=== PATIENT | male | born 1985 | race Two or more races ===

== ENCOUNTER 2019-08-01 12:59 | Inpatient (IN) | payer SELFPAY ==
--- NOTE | 2019-08-01 13:08 | ED ---
Psychiatric Complaint - HPI Summary HPI Summary: This pt is a 34 y/o male presenting to [facility] via EMS from [facility] c/o depression. Pt denies any diagnosis of depression and is not on any medications. Pt reports he does not feel well and states feeing depressed. He admits to SI thoughts and wanting to hurt himself. He denies definite SI plan. Pt admits to alcohol, tobacco, and marijuana use. He denies any PMHx. NKDA. Pt lives in [place]. - History Of Current Complaint Hx Obtained From: Patient Onset/Duration: Lasting Days, Still Present Timing: Days Severity Currently: Moderate Character: Depressed Aggravating Factor(s): Nothing Alleviating Factor(s): Nothing Has Suicidal: Reports: Thoughts. Denies: With A Plan Has Homicidal: Denies: Thoughts, With A Plan - Allergies/Home Medications Allergies/Adverse Reactions: Allergies Allergy/AdvReac Type Severity Reaction Status Date / Time No Known Allergies Allergy Verified 08/01/19 13:06 Home Medications: Home Medications NK [No Home Medications Reported] 08/01/19 [History Confirmed 08/01/19] PMH/Surg Hx/FS Hx/Imm Hx Endocrine/Hematology History: Denies: Hx Diabetes Cardiovascular History: Denies: Hx Hypertension - Surgical History Surgical History: None - Family History Known Family History: Negative: Cardiac Disease, Hypertension, Diabetes - Social History Alcohol Use: Occasionally Substance Use Type: Reports: Marijuana Smoking Status (MU): Current Some Day Smoker Review of Systems Negative: Fever, Chills Respiratory: Negative Gastrointestinal: Negative Genitourinary: Negative Psychological: Other - POSITIVE: SI Positive: Depressed All Other Systems Reviewed And Are Negative: Yes Physical Exam - Summary Physical Exam Summary: VITAL SIGNS: Reviewed. GENERAL: Patient is a well-developed and nourished male. Alcohol in patient's breath. HEAD AND FACE: No signs of trauma. No ecchymosis, hematomas or skull depressions. No sinus tenderness. EYES: PERRLA, EOMI x 2, No injected conjunctiva, no nystagmus. EARS: Hearing grossly intact. Ear canals and tympanic membranes are within normal limits. MOUTH: Oropharynx within normal limits. NECK: Supple, trachea is midline, no adenopathy, no JVD, no carotid bruit, no c- spine tenderness, neck with full ROM. CHEST: Symmetric, no tenderness at palpation LUNGS: Clear to auscultation bilaterally. No wheezing or crackles. CVS: Regular rate and rhythm, S1 and S2 present, no murmurs or gallops appreciated. ABDOMEN: Soft, non-tender. No signs of distention. No rebound no guarding, and no masses palpated. Bowel sounds are normal. EXTREMITIES: FROM in all major joints, no edema, no cyanosis or clubbing. NEURO: Alert and oriented x 3. No acute neurological deficits. Speech is normal and follows commands. SKIN: Dry and warm PSYCH: Patient is crying at bedside. Patient with positive SI thoughts. Triage Information Reviewed: Yes Vital Signs Reviewed: Yes Procedures - Sedation Patient Received Moderate/Deep Sedation with Procedure: No Diagnostics - Laboratory Result Diagrams: 08/01/19 13:21 08/01/19 13:21 Lab Statement: Any lab studies that have been ordered have been reviewed, and results considered in the medical decision making process. Course/Dx - Course Assessment/Plan: Test results without any significant abnormalities. Pt is alert and oriented x3. Pt is medically cleared. He had a mental health evaluation and his case was reviewed by Dr. Rose, psychiatrist. Pt will be admitted on a voluntary status by Dr. Rose with dx depressive episode. - Differential Dx/Clinical Impression Provider Diagnosis: Depressive episode Discharge ED - Sign-Out/Discharge Documenting (check all that apply): Patient Departure - Admit to [facility] - Discharge Plan Condition: Stable Disposition: PSYCHIATRIC FACILITY-[facility] - Billing Disposition and Condition Condition: STABLE Disposition: Psychiatric Facility [facility] - Attestation Statements Document Initiated by Daniellee: Yes Documenting Scribe: Angelita Gutierrez Provider For Whom Kay is Documenting (Include Credential): Manuel Gamboa MD Scribe Attestation: Angelita Silva scribed for Manuel Gamboa MD on 08/02/19 at 0826. Scribe Documentation Reviewed: Yes Provider Attestation: The documentation as recorded by the Angelita burton accurately reflects the service I personally performed and the decisions made by me, Manuel Gamboa MD Status of Scribe Document: Viewed
[2019-08-01 13:32] LABS: ABS Basophils 0.1 10^3/ul (0-0.2); ABS Eosinophils 0.1 10^3/ul (0-0.6); ABS Lymphocytes 1.9 10^3/ul (1.0-4.8); ABS Monocytes 0.7 10^3/ul (0-0.8); ABS Neutrophils 8.3 10^3/ul (1.5-7.7); Hematocrit 46 % (42-52); Hemoglobin 15.9 g/dL (14.0-18.0); Lymphocyte % 16.9 %; Mean Corpuscular HGB Conc 34 g/dL (31-36); Mean Corpuscular Hemoglobin 34 pg (27-31); Mean Corpuscular Volume 99 fL (80-94); Mean Platelet Volume 8.1 fL (7.4-10.4); Platelet Count 190 10^3/uL (150-450); Red Blood Count 4.66 10^6 /uL (4.18-5.48); Red Cell Distribution Width 14 % (10-15)
[2019-08-01 13:52] LABS: ALT 12 U/L (7-52); AST 17 U/L (13-39); Albumin 4.9 g/dL (3.2-5.2); Albumin/Globulin Ratio 2.2 (1-3); Alkaline Phosphatase 61 U/L (34-104); Anion Gap 7 mmol/L (2-11); BUN/Creatinine Ratio 12.5 (8-20); Blood Urea Nitrogen 10 mg/dL (6-24); CO2 Carbon Dioxide 27 mmol/L (22-32); Calcium 9.6 mg/dL (8.6-10.3); Chloride 105 mmol/L (101-111); EGFR African American 132.4 (>60); EGFR Non-African American 109.4 (>60); Globulin 2.2 g/dL (2-4); Glucose 86 mg/dL (70-100); Potassium 3.9 mmol/L (3.5-5.0); Sodium 139 mmol/L (135-145); Total Protein 7.1 g/dL (6.4-8.9)
[2019-08-01 13:56] LABS: Acetaminophen < 15 mcg/mL; Alcohol < 10 mg/dL (<10); Salicylate < 2.50 mg/dL (<30)
[2019-08-01 14:07] LABS: TSH (Thyroid Stimulating Horm) 0.57 mcIU/mL (0.34-5.60)
[2019-08-01] MEDS ORDERED: Acetaminophen TAB* 325 MG PO ONE (15:39)
[2019-08-01] MEDS ORDERED: Al Hydrox/Mg Hydrox/Simet LIQ* 30 ML UDC PO PRN (16:30)
[2019-08-01] MEDS ORDERED: Acetaminophen TAB* 325 MG PO PRN (16:30)
[2019-08-01] MEDS ORDERED: diPHENhydraMINE PO* 50 MG ONE (23:08)
[2019-08-02 08:50] LABS: HDL Cholesterol 57.2 mg/dL
[2019-08-02] MEDS: Nicotine PATCH 21 MG/24 HR* PATCH TRANSDERM SCH (13:53)
[2019-08-02] MEDS ORDERED: risperiDONE TAB* 2 MG PO PRN (15:18)
[2019-08-02] MEDS ORDERED: LORazepam TAB(*) 1 MG PO PRN (15:19)
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
[2019-08-02] MEDS: Nicotine* 4MG (FRUIT FLAVOR) GUM PO PRN (18:39)
[2019-08-02] MEDS: hydrOXYzine HCL TAB* 50 MG PO PRN (20:29)
[2019-08-02] MEDS: Nicotine Patch Removal NOTE PATCH OFF SCH (20:31)
[2019-08-02] MEDS ORDERED: Escitalopram * 10 MG TAB PO SCH (21:00)
[2019-08-02] MEDS ORDERED: OLANzapine TAB* 5 MG PO SCH (21:00)
[2019-08-03] MEDS: Nicotine PATCH 21 MG/24 HR* PATCH TRANSDERM SCH (13:19)
--- NOTE | 2019-08-03 15:15 | PN ---
Subjective - Subjective Date of Service: 08/03/19 Service Type: 08908 Hosp care 15 min low complexity Subjective: Raf at some point in the conversation becomes tearful, mostly because he feels like he is being discriminated against due to his being [place]ian. He has a list of ways he's been discriminated against, not all of which is coherent and little of which is reasonable. When I enter the room he is lying in bed with his CPAP mask on but the machine off. I have to ask him to take off his mask. We talk about medication. He says he's taken lexapro in the past so he is okay with my changing it (which I was not going to do, but will change to Zoloft). He is also ordered Zyprexa, but he is a 2 pack per day smoker, so I will change it to Risperdal 2 mg. Objective - General Observations Appearance: Disheveled Appears Stated Age: Yes Stature: WNL Posture: WNL Eye Contact: Intense Behavior/Activity: Peculiar, Agitated - Interaction Observations Attitude Towards Examiner: Cooperative, Defensive, Demanding Stated Mood: Dysphoric, Irritable Affect: Labile Speech Pattern/Tone: Unclear Thought Process: Disorganized Perception: WNL Thought Content: Paranoid, Grandiose Thought Process: Lethality: Passive Wish Hallucination Type: None, Denies Delusion Type: Persecution - Cognitive Function Orientation: A&O x 4 Level of Consciousness: Awake, Alert, Appropriate Cognition: Impaired Cognition, Impaired Fund of Knowledge Estimated Intelligence: Normal Insight: Mostly Blames Others for Problems, Difficulty Acknowledging Presence of Psyciatric Problems Judgment Within Normal Limits: No Ability to Make Reasonable Decisions: Serverely Impaired - Medication Compliance Cooperative with Inpatient Medication Regimen: Yes - Group Participation Participates in Group Activities: No Assessment - Assessment Merits Inpatient Hospitalization: For Immediate Safety Clinical Impression: Raf is a 34-year-old [place]ian man who came to the [facility] >1 year ago and is diagnosed with depression and paranoia and is being medicated with Zoloft and Risperdal. Plan - Plan Treatment Plan: Name: RAF MATA Birthdate: 1985 [id number] Start Zoloft instead of Lexapro at Raf's request. Change to Risperdal from Zyprexa due to heavy smoking. Continue to treat and attempt to reduce paranoia about staff members. Continued Medication Management: Different Medication Medications: Current Medications Acetaminophen (Tylenol Tab*) 650 mg PO Q4H PRN PRN Reason: for pain; or Temp >101 F Al Hydrox/Mg Hydrox/Simethicone (Maalox Plus*) 30 ml PO Q4H PRN PRN Reason: INDIGESTION Diphenhydramine HCl (Benadryl Po*) 50 mg PO BEDTIME PRN PRN Reason: INSOMNIA Hydroxyzine HCl (Atarax Tab*) 50 mg PO BEDTIME PRN PRN Reason: insomnia Last Admin: 08/02/19 20:29 Dose: 50 mg Lorazepam (Ativan Tab(*)) 1 mg PO Q4H PRN PRN Reason: Anxiety/agitation Last Admin: 08/02/19 18:41 Dose: 1 mg Nicotine (Nicotine Patch 21 Mg/24 Hr*) 1 patch TRANSDERM DAILY [facility] Last Admin: 08/03/19 13:19 Dose: Not Given Nicotine Polacrilex (Nicotine Gum*) 4 mg PO Q2H PRN PRN Reason: CRAVING Last Admin: 08/02/19 18:39 Dose: 4 mg Pharmacy Profile Note (Nicotine Patch Removal Note*) 1 note PATCH OFF 2100 [facility] Last Admin: 08/02/19 20:31 Dose: Not Given Risperidone (Risperdal*) 2 mg PO Q6H PRN PRN Reason: AGITATION Risperidone (Risperdal*) 2 mg PO BEDTIME GALLO Sertraline HCl (Zoloft*) 50 mg PO BEDTIME GALLO
[2019-08-03] MEDS: risperiDONE TAB* 2 MG PO SCH (19:46)
[2019-08-03] MEDS: Sertraline* 50 MG TAB PO SCH (19:46)
[2019-08-03] MEDS: Nicotine Patch Removal NOTE PATCH OFF SCH (19:50)
[2019-08-03] MEDS: diPHENhydraMINE PO* 50 MG PO PRN (20:16)
[2019-08-04] MEDS: Nicotine PATCH 21 MG/24 HR* PATCH TRANSDERM SCH (08:12)
[2019-08-04] MEDS: diPHENhydraMINE PO* 50 MG PO PRN (20:51)
[2019-08-04] MEDS: Nicotine Patch Removal NOTE PATCH OFF SCH (20:52)
[2019-08-04] MEDS: risperiDONE TAB* 2 MG PO SCH ×2 (20:52→22:19)
[2019-08-04] MEDS: Sertraline* 50 MG TAB PO SCH ×2 (20:53→22:20)
[2019-08-05] MEDS: Nicotine PATCH 21 MG/24 HR* PATCH TRANSDERM SCH (08:42)
[2019-08-05] MEDS: Nicotine* 4MG (FRUIT FLAVOR) GUM PO PRN ×2 (08:44→15:25)
--- NOTE | 2019-08-05 19:06 | PN ---
Subjective - Subjective Date of Service: 08/05/19 Subjective: Raf endorses improving mood, denies SI/HI or side effects from prescribed medication and he contracts for safety. He makes statements that he keeps getting fired from jobs because of discrimination. He stops talking when peers or staff are passing by. Per staff, he remains adherent to unit routines, he does not interact much with peers because of language barrier. Objective - General Observations Appearance: Unkempt Appears Stated Age: Yes Stature: Thin Posture: WNL Eye Contact: Average Behavior/Activity: WNL - Interaction Observations Attitude Towards Examiner: Mistrustful Stated Mood: Dysphoric Affect: Restricted Speech Pattern/Tone: Clear, Appropriate, Normal Volume Thought Process: Disorganized Perception: WNL Thought Content: Paranoid Hallucination Type: None Delusion Type: None - Cognitive Function Orientation: A&O x 4 Level of Consciousness: Awake Cognition: WNL Estimated Intelligence: Normal Ability to Make Reasonable Decisions: Mildly Impaired - Medication Compliance Cooperative with Inpatient Medication Regimen: Yes - Group Participation Participates in Group Activities: Partial Assessment - Assessment Merits Inpatient Hospitalization: For Ongoing Evaluation, Consolidate Improvements, For Discharge Planning Clinical Impression: Raf is a 34-year-old [place] man who came to the [facility] >1 year ago and is diagnosed with depression and paranoia and is being medicated with Zoloft and Risperdal. endorsing lower distress level and denying suicidal ideation or side effects from prescribed meds, observed to still be paranoid. Plan - Plan Treatment Plan: Name: RAF MATA Birthdate: 1985 [id number] Start Zoloft instead of Lexapro at Raf's request. Change to Risperdal from Zyprexa due to heavy smoking. Continue to treat and attempt to reduce paranoia about staff members. Medications: Current Medications Acetaminophen (Tylenol Tab*) 650 mg PO Q4H PRN PRN Reason: for pain; or Temp >101 F Al Hydrox/Mg Hydrox/Simethicone (Maalox Plus*) 30 ml PO Q4H PRN PRN Reason: INDIGESTION Diphenhydramine HCl (Benadryl Po*) 50 mg PO BEDTIME PRN PRN Reason: INSOMNIA Last Admin: 08/04/19 20:51 Dose: 50 mg Hydroxyzine HCl (Atarax Tab*) 50 mg PO BEDTIME PRN PRN Reason: insomnia Last Admin: 08/02/19 20:29 Dose: 50 mg Lorazepam (Ativan Tab(*)) 1 mg PO Q4H PRN PRN Reason: Anxiety/agitation Last Admin: 08/02/19 18:41 Dose: 1 mg Nicotine (Nicotine Patch 21 Mg/24 Hr*) 1 patch TRANSDERM DAILY [facility] Last Admin: 08/05/19 08:42 Dose: Not Given Nicotine Polacrilex (Nicotine Gum*) 4 mg PO Q2H PRN PRN Reason: CRAVING Last Admin: 08/05/19 15:25 Dose: 4 mg Pharmacy Profile Note (Nicotine Patch Removal Note*) 1 note PATCH OFF 2100 [facility] Last Admin: 08/04/19 20:52 Dose: 1 note Risperidone (Risperdal*) 2 mg PO Q6H PRN PRN Reason: AGITATION Risperidone (Risperdal*) 2 mg PO BEDTIME [facility] Last Admin: 08/04/19 22:19 Dose: 2 mg Sertraline HCl (Zoloft*) 50 mg PO BEDTIME [facility] Last Admin: 08/04/19 22:20 Dose: 50 mg - Discharge Plan Discharge Plan: Outpatient Follow Up Outpatient Program: [facility]
[2019-08-05] MEDS: diPHENhydraMINE PO* 50 MG PO PRN (20:57)
[2019-08-05] MEDS: Nicotine Patch Removal NOTE PATCH OFF SCH (20:58)
[2019-08-06] MEDS: risperiDONE TAB* 2 MG PO SCH
[2019-08-06] MEDS: Nicotine PATCH 21 MG/24 HR* PATCH TRANSDERM SCH (08:58)
--- NOTE | 2019-08-06 14:38 | PN ---
Subjective - Subjective Date of Service: 08/06/19 Service Type: 01829 Hosp care 25 min moderate complexity Subjective: Initially, Raf complains about his treatment, that people are laughing at him, that they are inattentive, that they are racist and discriminatory against him. Eventually, after talking to him for some time I suggested that he needed to prioritize if he wanted to feel like staff like him or if he wanted to get well. He is not really able to say what would make him well. He is not happy with the suggestion that he needs to take his medication. After returning later, he is more pleasant and more tearful. he offers that we might want to contact his psychiatrist in [place] or his uncle Francisco Lane . I did talk to Francisco who stated he would release information by fax. That information has not yet been obtained. Objective - General Observations Appearance: Disheveled Appears Stated Age: Yes Stature: WNL Posture: WNL Eye Contact: Intense Behavior/Activity: Peculiar, Agitated - Interaction Observations Attitude Towards Examiner: Anxious, Demanding, Hostile, Mistrustful Stated Mood: Dysphoric, Irritable, Anxious, Angry Affect: Labile Speech Pattern/Tone: Unclear Thought Process: Coherent Perception: WNL Thought Content: Paranoid Hallucination Type: Denies Delusion Type: Persecution, Grandeur - Cognitive Function Orientation: A&O x 4 Level of Consciousness: Awake, Alert, Appropriate Cognition: Impaired Cognition Estimated Intelligence: Normal Insight: Mostly Blames Others for Problems Judgment Within Normal Limits: No Ability to Make Reasonable Decisions: Moderately Impaired - Medication Compliance Cooperative with Inpatient Medication Regimen: Partial - Group Participation Participates in Group Activities: Partial Assessment - Assessment Merits Inpatient Hospitalization: For Immediate Safety Clinical Impression: Raf is a 34-year-old Qat[place] man who came to the [facility] >1 year ago and is diagnosed with depression and paranoia and is being medicated with Zoloft and Risperdal. endorsing lower distress level and denying suicidal ideation or side effects from prescribed meds, observed to still be paranoid. Plan - Plan Treatment Plan: Name: RAF MATA Birthdate: 1985 [id number] Start Zoloft instead of Lexapro at Raf's request. Change to Risperdal from Zyprexa due to heavy smoking. Continue to treat and attempt to reduce paranoia about staff members. 08/06/19 Continue to treat. Increase Risperdal to 3 mg at bedtime. Continue with zoloft. Attempt to obtain collateral. Plan for discharge tomorrow after obtaining Medicaid and appointment with DSS for SNAP benefits. Continued Medication Management: Different Medication Medications: Current Medications Acetaminophen (Tylenol Tab*) 650 mg PO Q4H PRN PRN Reason: for pain; or Temp >101 F Last Admin: 08/06/19 10:36 Dose: 650 mg Al Hydrox/Mg Hydrox/Simethicone (Maalox Plus*) 30 ml PO Q4H PRN PRN Reason: INDIGESTION Diphenhydramine HCl (Benadryl Po*) 50 mg PO BEDTIME PRN PRN Reason: INSOMNIA Last Admin: 08/05/19 20:57 Dose: 50 mg Hydroxyzine HCl (Atarax Tab*) 50 mg PO BEDTIME PRN PRN Reason: insomnia Last Admin: 08/02/19 20:29 Dose: 50 mg Lorazepam (Ativan Tab(*)) 1 mg PO Q4H PRN PRN Reason: Anxiety/agitation Last Admin: 08/02/19 18:41 Dose: 1 mg Nicotine (Nicotine Patch 21 Mg/24 Hr*) 1 patch TRANSDERM DAILY [facility] Last Admin: 08/06/19 08:58 Dose: Not Given Nicotine Polacrilex (Nicotine Gum*) 4 mg PO Q2H PRN PRN Reason: CRAVING Last Admin: 08/05/19 15:25 Dose: 4 mg Pharmacy Profile Note (Nicotine Patch Removal Note*) 1 note PATCH OFF 2100 [facility] Last Admin: 08/05/19 20:58 Dose: Not Given Risperidone (Risperdal*) 2 mg PO Q6H PRN PRN Reason: AGITATION Risperidone (Risperdal*) 3 mg PO BEDTIME GALLO Sertraline HCl (Zoloft*) 50 mg PO BEDTIME GALLO Last Admin: 08/06/19 00:00 Dose: Not Given - Discharge Plan Discharge Plan: Outpatient Follow Up Outpatient Program: [facility]
[2019-08-06] MEDS: Sertraline* 50 MG TAB PO SCH ×2 (20:59)
[2019-08-06] MEDS ORDERED: risperiDONE TAB* 3 MG PO SCH (21:00)
[2019-08-06] MEDS: hydrOXYzine HCL TAB* 50 MG PO PRN (21:01)
[2019-08-06] MEDS: Nicotine Patch Removal NOTE PATCH OFF SCH (21:03)
[2019-08-07 08:05] VITALS: BP 114/69
[2019-08-07] MEDS: Nicotine PATCH 21 MG/24 HR* PATCH TRANSDERM SCH (08:35)
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
== END 2019-08-07 14:35 | disposition home or self-care (01) | DRG 885 ==
LOC: ED 12:59 → BSU 19:15
PROVIDERS: ADMIT Psychiatry & Neurology Psychiatry; ATTEND Psychiatry & Neurology Psychiatry
DX: F22 Delusional disorders (principal); R45.851 Suicidal ideations; F32.9 Major depressive disorder, single episode, unspecified; F17.210 Nicotine dependence, cigarettes, uncomplicated; G47.00 Insomnia, unspecified; Z72.89 Other problems related to lifestyle
CPT/HCPCS: 36415; 80053; 80061; 80320; 80329; 83036; 84443; 85025; 94660; 99222; 99231; 99232; 99238; 99284; A9270-GY; G0480

== ENCOUNTER 2019-08-08 08:52 | Inpatient (IN) | payer MEDICAID ==
[2019-08-08 09:28] LABS: ABS Basophils 0.1 10^3/ul (0-0.2); ABS Eosinophils 0.2 10^3/ul (0-0.6); ABS Lymphocytes 1.6 10^3/ul (1.0-4.8); ABS Neutrophils 10.7 10^3/ul (1.5-7.7); Eosinophil % 1.7 %; Hematocrit 52 % (42-52); Hemoglobin 17.9 g/dL (14.0-18.0); Lymphocyte % 11.6 %; Mean Corpuscular HGB Conc 34 g/dL (31-36); Mean Corpuscular Hemoglobin 34 pg (27-31); Mean Corpuscular Volume 98 fL (80-94); Mean Platelet Volume 7.9 fL (7.4-10.4); Platelet Count 204 10^3/uL (150-450); Red Blood Count 5.34 10^6 /uL (4.18-5.48); Red Cell Distribution Width 14 % (10-15); White Blood Count 13.5 10^3/uL (3.5-10.8)
[2019-08-08 09:44] LABS: ALT 24 U/L (7-52); AST 21 U/L (13-39); Albumin 5.2 g/dL (3.2-5.2); Albumin/Globulin Ratio 2.1 (1-3); Alkaline Phosphatase 68 U/L (34-104); Anion Gap 7 mmol/L (2-11); BUN/Creatinine Ratio 16.1 (8-20); Blood Urea Nitrogen 15 mg/dL (6-24); CO2 Carbon Dioxide 28 mmol/L (22-32); Calcium 10.1 mg/dL (8.6-10.3); Chloride 103 mmol/L (101-111); EGFR African American 111.2 (>60); EGFR Non-African American 91.9 (>60); Globulin 2.5 g/dL (2-4); Glucose 107 mg/dL (70-100); Potassium 4.1 mmol/L (3.5-5.0); Sodium 138 mmol/L (135-145); Total Protein 7.7 g/dL (6.4-8.9)
[2019-08-08 10:06] LABS: Acetaminophen < 15 mcg/mL; Alcohol < 10 mg/dL (<10); Salicylate < 2.50 mg/dL (<30)
[2019-08-08 10:20] LABS: TSH (Thyroid Stimulating Horm) 2.28 mcIU/mL (0.34-5.60)
[2019-08-08] MEDS ORDERED: Acetaminophen TAB* 325 MG PO ONE (10:36)
--- NOTE | 2019-08-08 10:47 | ED ---
Psychiatric Complaint - HPI Summary HPI Summary: This patient is a 34-year-old male who was recently discharged from [facility] inpatient for personality disorder presenting to the ED stating he tried to jump out of his bedroom window today, but stopped himself. He states he wants to commit suicide. His plan is to jump out a window, however he states he has other plans available to him as well, but will not disclose. He was recently discharged yesterday. He states he was able to get to [facility] who transported him here for suicidal ideation. He does endorse a headache. He is upset on arrival and very tearful. He denies any other symptoms. - History Of Current Complaint Chief Complaint: EDSuicidal Time Seen by Provider: 08/08/19 08:53 Hx Obtained From: Patient Onset/Duration: Sudden Onset Timing: Constant Severity Initially: Severe Severity Currently: Severe Character: Depressed Aggravating Factor(s): Nothing Alleviating Factor(s): Nothing Associated Signs And Symptoms: Positive: Negative Related History: Positive For: Prior Psychiatric Issues Has Suicidal: Reports: Thoughts, With A Plan, Demonstrates Gesture, Has Prior Attempt(s) - Risk Factor(s) Completed Suicide Risk Factors: Male, White Citizen Of [place] - Allergies/Home Medications Allergies/Adverse Reactions: Allergies Allergy/AdvReac Type Severity Reaction Status Date / Time No Known Allergies Allergy Verified 08/01/19 13:06 PMH/Surg Hx/FS Hx/Imm Hx Previously Healthy: Yes Endocrine/Hematology History: Denies: Hx Diabetes Cardiovascular History: Denies: Hx Hypertension Respiratory History: Reports: Hx Sleep Apnea - Pt weighed 360 lbs in past, developed sleep apnea; MD still advises CPAP Denies: Hx Asthma, Hx Chronic Bronchitis, Hx Chronic Obstructive Pulmonary Disease (COPD), Hx Cystic Fibrosis, Hx Lung Cancer, Hx Pleural Effusion, Hx Pneumonia, Hx Pulmonary Edema, Hx Pulmonary Embolism, Hx Seasonal Allergies, Other Respiratory Problems/Disorders Sensory History: Denies: Hx Contacts or Glasses, Hx Hearing Aid Opthamlomology History: Denies: Hx Contacts or Glasses Psychiatric History: Reports: Hx Depression, Hx Community Mental Health Tx, Hx Suicide Attempt - 2006, attempted hanging, found by someone and police called Denies: Hx Eating Disorder, Hx of Violent Episodes Against Others - Immunization History Hx Pertussis Vaccination: No Immunizations Up to Date: Yes Infectious Disease History: No Infectious Disease History: Denies: Hx Tuberculosis, Traveled Outside the [place] in Last 30 Days - Family History Known Family History: Negative: Cardiac Disease, Hypertension, Diabetes - Social History Occupation: Unemployed Lives: Alone Alcohol Use: Occasionally Alcohol Amount: 2 to 3 cans of beer per day Hx Substance Use: Yes Substance Use Type: Reports: Marijuana Substance Use Comment - Amount & Last Used: occasionally Hx Tobacco Use: Yes Smoking Status (MU): Current Some Day Smoker Review of Systems Negative: Fever, Chills, Skin Diaphoresis Negative: Palpitations, Chest Pain Negative: Shortness Of Breath, Cough Genitourinary: Negative Positive: no symptoms reported, see HPI Negative: Arthralgia, Myalgia Skin: Negative Positive: Anxious, Depressed All Other Systems Reviewed And Are Negative: Yes Physical Exam Triage Information Reviewed: Yes Vital Signs On Initial Exam: Initial Vitals Temp Pulse Resp BP Pulse Ox 98.3 F 68 18 105/60 100 08/08/19 08:53 08/08/19 08:53 08/08/19 08:53 08/08/19 08:53 08/08/19 08:53 Vital Signs Reviewed: Yes Appearance: Positive: Well-Appearing, Well-Nourished Skin: Positive: Warm, Skin Color Reflects Adequate Perfusion Head/Face: Positive: Normal Head/Face Inspection Eyes: Positive: EOMI, HENRY, Conjunctiva Clear Neck: Positive: Supple Respiratory/Lung Sounds: Positive: Clear to Auscultation, Breath Sounds Present Cardiovascular: Positive: Pulses are Symmetrical in both Upper and Lower Extremities Musculoskeletal: Positive: Strength/ROM Intact Neurological: Positive: Speech Normal Psychiatric: Positive: Anxious, Depressed Diagnostics - Vital Signs Vital Signs Temp Pulse Resp BP Pulse Ox 08/08/19 08:53 98.3 F 68 18 105/60 100 - Laboratory Lab Results: Lab Results 08/08/19 08/08/19 Range/Units 09:20 09:20 WBC 13.5 H (3.5-10.8) 10^3/uL RBC 5.34 (4.18-5.48) 10^6 /uL Hgb 17.9 (14.0-18.0) g/dL Hct 52 (42-52) % MCV 98 H (80-94) fL MCH 34 H (27-31) pg MCHC 34 (31-36) g/dL RDW 14 (10-15) % Plt Count 204 (150-450) 10^3/uL MPV 7.9 (7.4-10.4) fL Neut % (Auto) 79.0 % Lymph % (Auto) 11.6 % [place] % (Auto) 7.2 % Eos % (Auto) 1.7 % Baso % (Auto) 0.5 % Absolute Neuts (auto) 10.7 H (1.5-7.7) 10^3/ul Absolute Lymphs (auto) 1.6 (1.0-4.8) 10^3/ul Absolute Monos (auto) 1.0 H (0-0.8) 10^3/ul Absolute Eos (auto) 0.2 (0-0.6) 10^3/ul Absolute Basos (auto) 0.1 (0-0.2) 10^3/ul Absolute Nucleated RBC 0.0 10^3/ul Nucleated RBC % 0.0 Sodium 138 (135-145) mmol/L Potassium 4.1 (3.5-5.0) mmol/L Chloride 103 (101-111) mmol/L Carbon Dioxide 28 (22-32) mmol/L Anion Gap 7 (2-11) mmol/L BUN 15 (6-24) mg/dL Creatinine 0.93 (0.67-1.17) mg/dL Est GFR ( Amer) 111.2 (>60) Est GFR (Non-Af Amer) 91.9 (>60) BUN/Creatinine Ratio 16.1 (8-20) Glucose 107 H (70-100) mg/dL Calcium 10.1 (8.6-10.3) mg/dL Total Bilirubin 1.00 (0.2-1.0) mg/dL AST 21 (13-39) U/L ALT 24 (7-52) U/L Alkaline Phosphatase 68 (34-104) U/L Total Protein 7.7 (6.4-8.9) g/dL Albumin 5.2 (3.2-5.2) g/dL Globulin 2.5 (2-4) g/dL Albumin/Globulin Ratio 2.1 (1-3) TSH 2.28 (0.34-5.60) mcIU/mL Salicylates < 2.50 (<30) mg/dL Acetaminophen < 15 mcg/mL Serum Alcohol < 10 (<10) mg/dL Result Diagrams: 08/08/19 09:20 08/08/19 09:20 Lab Statement: Any lab studies that have been ordered have been reviewed, and results considered in the medical decision making process. Course/Dx - Course Course Of Treatment: This patient is evaluated for suicidal ideation with plan, intent. Endorses headache on arrival. He is tearful on arrival. He states he would like to commit suicide and is requesting to be inpatient here at [facility] again. He was discharged yesterday. Labs obtained which showed 13,000 white count, positive for cocaine and positive for cannabinoids. Mental health evaluation completed, per Dr. Rose will be admitted. - Differential Dx/Clinical Impression Differential Diagnosis/HQI/PQRI: Positive: Depression, Suicide Attempt, Suicidal Ideation, Suicidal Gesture Provider Diagnosis: Suicide attempt Discharge ED - Sign-Out/Discharge Documenting (check all that apply): Patient Departure All imaging exams completed and their final reports reviewed: No - Discharge Plan Condition: Fair Disposition: ADMITTED TO [facility] - Billing Disposition and Condition Condition: FAIR Disposition: Admitted to [facility] - Attestation Statements Provider Attestation: I was available for consult. This patient was seen by the SALVATORE. The patient was not presented to, seen by, or examined by me. Carl Castellon MD
[2019-08-08 12:15] LABS: Urine Appearance Clear; Urine Bilirubin Negative (Negative); Urine Blood Negative (Negative); Urine Color Yellow; Urine Glucose Negative (Negative); Urine Ketones Negative (Negative); Urine Nitrite Negative (Negative); Urine Protein Negative (Negative); Urine Specific Gravity 1.009 (1.010-1.030); Urine Urobilinogen Negative (Negative)
[2019-08-08 13:11] LABS: Urine Benzodiazepine Screen None Detected (None Detect); Urine Opiates Screen None Detected (None Detect)
[2019-08-08] MEDS ORDERED: Al Hydrox/Mg Hydrox/Simet LIQ* 30 ML UDC PO PRN (13:18)
[2019-08-08] MEDS ORDERED: Acetaminophen TAB* 325 MG PO PRN (13:18)
[2019-08-08] MEDS ORDERED: hydrOXYzine HCL TAB* 50 MG PO PRN ×2 (13:20→15:33)
[2019-08-08 14:40] VITALS: BP 133/84
[2019-08-08] MEDS ORDERED: Haloperidol TAB* 5 MG PO PRN (15:30)
[2019-08-08] MEDS ORDERED: risperiDONE TAB* 3 MG PO SCH (21:00)
[2019-08-08] MEDS ORDERED: Sertraline* 50 MG TAB PO SCH (21:00)
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
== END 2019-08-09 14:20 | disposition home or self-care (01) | DRG 881 ==
LOC: ED 08:52 → BSU 13:18
PROVIDERS: ADMIT Psychiatry & Neurology Psychiatry; ATTEND Psychiatry & Neurology Psychiatry
DX: F32.9 Major depressive disorder, single episode, unspecified (principal); R45.851 Suicidal ideations; F22 Delusional disorders; F60.9 Personality disorder, unspecified; G47.30 Sleep apnea, unspecified; F90.9 Attention-deficit hyperactivity disorder, unspecified type; F17.210 Nicotine dependence, cigarettes, uncomplicated; Z91.5 Personal history of self-harm; Z72.89 Other problems related to lifestyle; Z56.0 Unemployment, unspecified
CPT/HCPCS: 36415; 80053; 80307; 80320; 80329; 81003; 84443; 85025; 99238; 99284; A9270-GY; G0480